=== PATIENT | female | born 1990 | race Caucasian/White ===

== ENCOUNTER 2022-11-17 09:45 | Emergency (ER) | payer MEDICAID, SELFPAY ==
[2022-11-17] VITALS (9 sets, daily range): BP systolic 115–133; BP diastolic 50–76; PULSE 51–63; RESP 16; TEMP 36.7; O2SAT 98–100; BMI 21.6
--- NOTE | 2022-11-17 09:51 | HMH.EDGENADL ---
Discharge Plan Disposition Patient Disposition: Home, Self-Care Condition: Good Prescriptions Prescriptions: No Action methocarbamol 500 mg tablet 500 mg PO NEEDED PRN (Reason: Pain) Label Comments: TAKE 1 TABLET BY MOUTH THREE TIMES DAILY Referrals Follow up/Referrals: Cora Wayne MD [Primary Care Provider] - See instructions Activity Restrictions/Add. Instructions Additional Instructions/Restrictions: You have a 3 cm left ovarian cyst without evidence of hemorrhage. Ultrasound did not demonstrate any evidence of ovarian torsion. Please follow-up with your [facility] physician in [place] as discussed. Please return to emergency department with any significant worsening of your pain. No other emergency was identified today. Please take Tylenol and ibuprofen as indicated and as needed. Clinical Impressions Clinical Impression: Cyst of left ovary Instructions Patient Instructions: DI for Acute Abdominal Pain Discharge ED Provider: Francis Gerardo Adult HPI General Chief complaint: Abdominal Pain Stated complaint: Left abd pain to side and back no accendt Time Seen by Provider: 11/17/22 10:19 History of Present Illness HPI narrative: Patient is a 32-year-old female presenting with left adnexal and left flank pain. States this began on Thursday has been intermittent and colicky in nature. Denies any fevers states that she has a history of pyelonephritis and has had a stone in the past. However when she had a stone stated that they just noted that there was evidence that it may have passed and did not see the stone./So she is unsure whether or not she has actually had kidney stones in the past. She does have a history of ovarian cysts. States that the majority of her pain is located left lower quadrant of her abdomen radiates to her back. Has been regular with her periods but recently had some breakthrough bleeding. Is sexually active. Denies any vaginal discharge that is new or different. Denies any changes in bowel movements or flatus. Pain currently is moderate to severe. Related Data Home Medications Medication Instructions Recorded Confirmed methocarbamol 500 mg tablet 500 mg PO NEEDED PRN Pain 11/17/22 11/17/22 Allergies Allergy/AdvReac Type Severity Reaction Status Date / Time No Known Allergies Allergy Verified 11/17/22 10:12 [facility] Disclaimer: The information contained in this section may have been updated after the patient was seen, as this information can be updated by other users. Social History Smoking Status: Current every day smoker alcohol intake: never current occupational status: other Travel in the last 8 weeks: None ROS Obtained: Yes All systems reviewed & no additional complaints except as documented Physical Exam General General appearance: alert and other (In obvious pain) Head Head exam: atraumatic and normocephalic Eye Eye exam: Present normal appearance, PERRL and EOMI Neck Neck exam: Present normal inspection Chest Chest inspection: Present normal inspection and symmetric chest wall rise Respiratory Respiratory exam: Present normal lung sounds bilaterally; Absent respiratory distress Cardiovascular Cardiovascular exam: Present regular rate Abdominal Exam Abdominal exam: Present soft and other (Patient has tenderness to palpation in the left lower quadrant. No pain in any other quadrants. Negative for CVA tenderness on the left. No rebound or guarding. No distention.) Neurological Exam Neurological exam: Present alert and oriented X3 Medical Decision Making Jordon Inquiry Pt receiving controlled substance: No Vital Signs: 11/17/22 09:48 11/17/22 10:00 11/17/22 10:09 Temperature 98.1 F Temperature Source Oral Pulse Rate 56 L 54 L Pulse Rate [Left] 60 Respiratory Rate 16 Blood Pressure 130/76 128/72 Blood Pressure [Right Arm] 130/76 Blood Pressure Mean 89 91 Blood Pressure Mean [Right
--- NOTE | 2022-11-17 09:57 | CT_ITS ---
FINAL REPORT TECHNIQUE: Postcontrast axial images through the abdomen and pelvis were performed. This study was performed with techniques to keep radiation doses as low as reasonably achievable, (ALARA). Individualized dose reduction techniques using automated exposure control or adjustment of mA and/or kV according to the patient's size were employed. CLINICAL HISTORY: LLQ abd pain FINDINGS: Abdomen: The lung bases are clear. The liver is normal in size and attenuation. The gallbladder is present. The spleen is unremarkable. The adrenals are normal. The pancreas is unremarkable. The kidneys enhance appropriately. The aorta is normal in caliber. No free fluid or adenopathy is identified. No findings for mechanical bowel obstruction are identified. Pelvis: The appendix is not identified. The urinary bladder is unremarkable. No free fluid, free air, abscess or adenopathy is identified. The uterus is anteverted. There is a 2.9 cm left ovarian cyst. IMPRESSION: 2.9 cm left ovarian cyst. No acute inflammatory process. Reviewed, Interpreted and Dictated by Nathan Luis MD Transcribed by Nilesh Black Authenticated and [facility]
[2022-11-17 10:00] LABS: Microscopic, Urine URINE MICROSCOPIC (MICROSCOPIC)
[2022-11-17 10:08] LABS: Appearance,Urine CLEAR (Clear); Bilirubin,Urine Negative (Negative); Blood, Urine Negative (Negative); Color,Urine YELLOW (Yellow); Glucose,Urine (UA) Negative (Negative); Ketones,Urine Negative (Negative); Leukocyte Esterase,Urine Negative (Negative); Nitrate,Urine Negative (Negative); Protein,Urine Negative (Negative); Urobilinogen,Urine 0.2 EU/dl (0.2)
--- NOTE | 2022-11-17 10:10 | PC.NURSE ---
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
[2022-11-17 10:13] LABS: Basophils # 0.1 K/mm3 (0-0.2); Basophils % 1.4 % (0.1-2.0); Eosinophils # 0.1 K/mm3 (0.0-0.4); Eosinophils % 1.5 % (0.1-12.0); Hematocrit 43.8 % (37.0-47.0); Hemoglobin 14.4 g/dL (12.2-16.2); Lymphocytes # 2.5 K/mm3 (0.7-4.5); Lymphocytes % 39.4 % (10-50); Mean Corpuscular HGB Conc 32.8 g/dL (31.8-35.4); Mean Corpuscular Hemoglobin 31.6 pg (27.0-31.2); Mean Corpuscular Volume 96.3 fl (81-99); Mean Platelet Volume 9.2 fl (7.4-10.4); Monocytes # 0.4 K/mm3 (0.1-1.0); Monocytes % 5.6 % (1.7-9.3); Neutrophils # 3.3 K/mm3 (1.8-7.8); Platelet Count 254 K/mm3 (142-424); Red Blood Count 4.55 M/mm3 (4.20-5.40); Red Cell Distribution Width 12.7 % (11.5-17.5); White Blood Count 6.3 K/mm3 (4.8-10.8)
[2022-11-17 10:22] LABS: Chloride 105 mmol/L (98-107); Sodium 143 mmol/L (136-145)
[2022-11-17 10:24] LABS: Bacteria,Urine Trace /lpf
[2022-11-17 10:25] LABS: Alanine Aminotransferase 20 U/L (12-78); Albumin Level 5.2 g/dl (3.5-5.0); Albumin/Globulin Ratio 1.4 (1.1-1.8); Alkaline Phosphatase 53 U/L (38-126); Aspartate Amino Transferase 28 U/L (14-36); Bilirubin,Total 0.4 mg/dl (0.2-1.3); Blood Urea Nitrogen 12 mg/dl (7-17); Calcium 9.4 mg/dl (8.4-10.2); Carbon Dioxide 27 mmol/L (22.0-30.0); Creatinine Clearance Estimated 128 mL/min (50-200); Estimated Glomerular Filt Rate 117 ml/min (>60); GFR (African American) 142 ML/MIN (>60); Globulin 3.6 g/dL (1.3-3.2); Glucose 90 mg/dl (74-100); Total Protein,Serum 8.8 g/dl (6.3-8.2)
[2022-11-17 10:40] LABS: Urine Pregnancy, HCG Qual. Negative (Negative)
--- NOTE | 2022-11-17 11:01 | PC.NURSE ---
pt ambulated to bathroom upon return to room from ct scan. pt hooked back up to monitor and fluids
--- NOTE | 2022-11-17 11:23 | PC.NURSE ---
pt requesting morphine , pt still having alot of pain
--- NOTE | 2022-11-17 11:32 | PC.NURSE ---
pt feeling much better PS 02/18
--- NOTE | 2022-11-17 11:52 | US_ITS ---
FINAL REPORT CLINICAL HISTORY: L adnexal pain; evaluate for torsion FINDINGS: Transvaginal ultrasound imaging of the pelvis was obtained. The uterus measures 10.5 x 5.3 x 7.0 cm. Endometrium measures 0.6 cm and is within normal limits for patient's age. The right ovary measures 3.8 cm. The left ovary measures 4.0 cm. There is a septated, complex cyst in left ovary measuring 2.4 cm in diameter. There is no evidence of ovarian torsion. There is no free fluid. IMPRESSION: Septated, complex left ovarian cyst. No evidence of torsion. Reviewed, Interpreted and Dictated by Nathan Luis MD Transcribed by Yvette Castaneda Authenticated and [facility]
--- NOTE | 2022-11-17 11:52 | PC.NURSE ---
radiology notified of US
--- NOTE | 2022-11-17 12:26 | PC.NURSE ---
pt to ultrasound via wheelchair
--- NOTE | 2022-11-17 12:49 | PC.NURSE ---
pt returned from US
--- NOTE | 2022-11-17 12:49 | PC.NURSE ---
ultrasound staff gave verbal report to ER at this time
--- NOTE | 2022-11-17 13:08 | PC.NURSE ---
VERNON DAS at for update on POC
== END 2022-11-17 13:19 | disposition home or self-care (01) ==
PROVIDERS: Emergency Provider Student in an Organized Health Care Education/Training Program; PCP Internal Medicine
DX: N83.202 Unspecified ovarian cyst, left side (principal); R10.32 Left lower quadrant pain; F17.210 Nicotine dependence, cigarettes, uncomplicated
CPT/HCPCS: 74177; 76830; 80053; 81001; 81025; 85025; 96361; 96374; 96375; 99285; J2405

== ENCOUNTER 2023-01-05 07:48 | Emergency (ER) | payer MEDICAID, SELFPAY ==
[2023-01-05] VITALS (10 sets, daily range): BP systolic 101–121; BP diastolic 50–75; PULSE 48–67; RESP 18–20; TEMP 36.7–37.1; O2SAT 97–100; BMI 22.1
--- NOTE | 2023-01-05 07:46 | ECG_ITS ---
APPROVED REPORT Exam: Resting ECG HR:69 bpm ECG Measurements Heart Rate 69 AXES OR 134 P 72 QRSd 90 QRS 73 QT 370 T 68 QTc 390 Conclusion SINUS RHYTHM POSSIBLE LEFT ATRIAL ENLARGEMENT [-0.1mV P-WAVE IN V1/V2] BORDERLINE ECG UNCONFIRMED REPORT Electronically signed by : Tim Shields MD 01/06/2023 03:04:00
--- NOTE | 2023-01-05 07:59 | XR_ITS ---
FINAL REPORT CLINICAL HISTORY: SHOULDER PAIN FINDINGS: Three views of the left shoulder were obtained. There is no prior exam for comparison. There is no fracture or dislocation. The joint space is preserved. Soft tissues are normal. IMPRESSION: No acute osseous abnormality of the left shoulder. Reviewed, Interpreted and Dictated by Jailyn Redmond MD Transcribed by Sanjuana Harper Authenticated and . [facility]
--- NOTE | 2023-01-05 08:01 | XR_ITS ---
FINAL REPORT CLINICAL HISTORY: SHOULDER AND CHEST PAIN FINDINGS: PA and lateral views of the chest are obtained. There is no prior exam for comparison. The cardiac and mediastinal silhouettes are within normal limits. The lungs are clear. There is no pleural effusion, pneumothorax, or acute osseous abnormality. IMPRESSION: No radiographic evidence of acute cardiac or pulmonary disease. Reviewed, Interpreted and Dictated by Jailyn Redmond MD Transcribed by Sanjuana Harper Authenticated and [facility]
[2023-01-05 08:05] LABS: Basophils # 0.1 K/mm3 (0-0.2); Basophils % 1.1 % (0.1-2.0); Eosinophils # 0.1 K/mm3 (0.0-0.4); Eosinophils % 1.7 % (0.1-12.0); Hematocrit 41.4 % (37.0-47.0); Hemoglobin 13.6 g/dL (12.2-16.2); Lymphocytes # 2.1 K/mm3 (0.7-4.5); Lymphocytes % 41.3 % (10-50); Mean Corpuscular HGB Conc 32.8 g/dL (31.8-35.4); Mean Corpuscular Hemoglobin 31.4 pg (27.0-31.2); Mean Corpuscular Volume 95.7 fl (81-99); Monocytes # 0.2 K/mm3 (0.1-1.0); Monocytes % 4.7 % (1.7-9.3); Neutrophils # 2.6 K/mm3 (1.8-7.8); Neutrophils % 51.2 % (37.0-80.0); Platelet Count 233 K/mm3 (142-424); Red Blood Count 4.32 M/mm3 (4.20-5.40); Red Cell Distribution Width 12.6 % (11.5-17.5); White Blood Count 5.1 K/mm3 (4.8-10.8)
[2023-01-05 08:12] LABS: Anion Gap 13.5 mEq/L (5-15); Blood Urea Nitrogen 13 mg/dl (7-17); Calcium 9.3 mg/dl (8.4-10.2); Carbon Dioxide 25 mmol/L (22.0-30.0); Chloride 104 mmol/L (98-107); Creatinine Clearance Estimated 112 mL/min (50-200); Estimated Glomerular Filt Rate 98 ml/min (>60); GFR (African American) 119 ML/MIN (>60); Glucose 103 mg/dl (74-100); Potassium 3.5 mmoL/L (3.5-5.1); Sodium 139 mmol/L (136-145)
--- NOTE | 2023-01-05 08:13 | PC.NURSE ---
pt to radiology
--- NOTE | 2023-01-05 08:20 | PC.NURSE ---
pt returned from radiology via wheelchair.
[2023-01-05 08:28] LABS: Troponin I < 0.01 ng/ml (0.00-0.034)
[2023-01-05 08:36] LABS: HCG Qualitative, Serum Negative (Negative)
--- NOTE | 2023-01-05 09:10 | PC.NURSE ---
Rounded on pt. resting in bed. call light within reach. bed in lowest position. pt states she is still having pain in her shoulder. ER MD aware.
--- NOTE | 2023-01-05 09:28 | HMH.EDGENADL ---
Discharge Plan Disposition Patient Disposition: Home, Self-Care Prescriptions Prescriptions: New ketorolac 10 mg tablet 10 mg PO Q8H PRN (Reason: pain) Qty: 20 0RF No Action methocarbamol 500 mg tablet 500 mg PO NEEDED PRN (Reason: Pain) Label Comments: TAKE 1 TABLET BY MOUTH THREE TIMES DAILY Referrals Follow up/Referrals: Cora Wayne MD [Primary Care Provider] - See instructions Clinical Impressions Clinical Impression: Muscle spasm Discharge ED Provider: Kenisha (ED)[facility] Adult HPI General Chief complaint: Chest Pain Stated complaint: Chest Pain Time Seen by Provider: 01/05/23 08:00 Mode of Arrival: Ambulatory Source of Information: Patient Limitations: No Limitations Description of Symptoms (Recalled from ER Triage Doc. by RN): pt reports chest pain that started this weekend, states it started in her L shoulder through her chest and down her arm, also reports shortness of breath that started last night, explains pain in her shoulder and chest as sharp, and states her arm is aching History of Present Illness HPI narrative: 32-year-old female presents with chest pain and left shoulder pain for the last few days. She says that she has pain when she moves her shoulder and it hurts in the shoulder. And then she is having pain is her chest as well associated with shortness of air and anxiety. She has no other fever chills cough hemoptysis history of pulmonary embolisms or leg swelling. No known trauma to her shoulder. Related Data Home Medications Medication Instructions Recorded Confirmed methocarbamol 500 mg tablet 500 mg PO NEEDED PRN Pain 11/17/22 11/17/22 Previous Rx's Medication Instructions Recorded ketorolac 10 mg tablet 10 mg PO Q8H PRN pain #20 tabs 01/05/23 Allergies Allergy/AdvReac Type Severity Reaction Status Date / Time No Known Allergies Allergy Verified 11/17/22 10:12 [facility] Disclaimer: The information contained in this section may have been updated after the patient was seen, as this information can be updated by other users. Social History (Updated 11/17/22 @ 13:13 by Coby Gerardo MD) Smoking Status: Never smoker alcohol intake: never current occupational status: other Travel in the last 8 weeks: None ROS Obtained: Yes All systems reviewed & no additional complaints except as documented Constitutional Constitutional: Denies fatigue and Denies fever(s) Eyes Eyes: Denies dry eyes ENT Ears, Nose, Mouth, and Throat: Denies dizziness Cardiovascular Cardiovascular: Denies diaphoresis and Denies dyspnea Respiratory Respiratory: Denies dyspnea Gastrointestinal Gastrointestingal: Denies melena or nausea Genitourinary Female Genitourinary: Denies hematuria Musculoskeletal Musculoskeletal: Denies joint swelling Integumentary/Breasts Skin/Breast: Denies rash Neurologic Neurologic: Denies dizziness Endocrine Endocrine: Denies fatigue Physical Exam General General appearance: alert and in no apparent distress Eye Eye exam: Present PERRL and EOMI ENT ENT exam: Present normal exam and normal oropharynx Neck Neck exam: Present normal inspection Chest Chest inspection: Present symmetric chest wall rise Respiratory Respiratory exam: Present normal lung sounds bilaterally; Absent respiratory distress Cardiovascular Cardiovascular exam: Present regular rate and normal rhythm Abdominal Exam Abdominal exam: Present soft; Absent distention, tenderness, guarding, rebound, Hurley's sign or tenderness at McBurney's Point Extremities Exam Extremities exam: Present other (Full range of motion of the shoulder with worse with moving.) Back Exam Back exam: Present normal inspection Neurological Exam Neurological exam: Present alert and oriented X3 Psychiatric Psychiatric exam: Present normal affect and normal mood Skin Skin exam: Present warm, dry and intact Lymphatic Lymphatic Findings: no adenopathy [facility]
--- NOTE | 2023-01-05 09:48 | PC.NURSE ---
pt resting in bed call light @ bs
--- NOTE | 2023-01-05 10:41 | PC.NURSE ---
updated pt on care. no questions or concerns voiced. call light within reach. bed in lowest position.
[2023-01-05 11:27] LABS: Troponin I < 0.01 ng/ml (0.00-0.034)
== END 2023-01-05 12:00 | disposition home or self-care (01) ==
PROVIDERS: Emergency Medicine; Emergency Provider Emergency Medicine; PCP Internal Medicine
DX: M62.830 Muscle spasm of back; R07.89 Other chest pain
CPT/HCPCS: 71046; 73030; 80048; 84484; 84703; 85025; 85378; 93005; 96361; 96374; 99284; 99285